=== PATIENT | female | born 1945 | race Caucasian/White ===

== ENCOUNTER 2016-12-08 11:56 | Emergency (ER) | payer MEDICARE, BC | END 2016-12-08 13:55 | disposition home or self-care (01) | LOC: D.ER 11:56 | DX: L50.9 Urticaria, unspecified (principal); J45.909 Unspecified asthma, uncomplicated; I10 Essential (primary) hypertension ==

== ENCOUNTER 2017-02-23 11:05 | Emergency (ER) | payer MEDICARE, BC ==
[2017-02-23 13:00] LABS: BASOPHILS 0.1 % (0.0-2.0); EOSINOPHILS 6.2 % (0-7); HEMATOCRIT 38.6 % (36.0-48.0); IMMATURE GRANULOCYTES 0.2 % (0-5); MCH 29.1 pg (26.0-34.0); MCHC 33.7 g/dL (31.0-37.0); MCV 86.4 fL (80.0-100.0); MEAN PLATELET VOLUME 10.2 fL (7.4-10.4); MONOCYTES 6.4 % (2-11); NEUTROPHILS 76.1 % (40-80); RBC 4.47 10x6/uL (4.00-5.40); RDW 13.3 % (11.5-14.5); WBC 12.2 10x3/uL (4.8-10.8)
[2017-02-23 13:03] LABS: PLATELET COUNT 277 10x3/uL (130-400)
== END 2017-02-23 13:45 | disposition home or self-care (01) ==
LOC: D.ER 11:05
PROVIDERS: Nurse Practitioner Acute Care
DX: J18.9 Pneumonia, unspecified organism (principal); I10 Essential (primary) hypertension; J45.909 Unspecified asthma, uncomplicated

== ENCOUNTER 2017-10-16 21:45 | Observation (INO) | payer MEDICARE, BC ==
[~2017-10-16] VITALS: Ht 160 cm; Wt 62.4 kg
[2017-10-16 23:29] LABS: BASOPHILS 0.2 % (0-2); HEMATOCRIT 40.5 % (36.0-48.0); HEMOGLOBIN 13.8 g/dL (12-16); IMMATURE GRANULOCYTES 0.2 % (0-5); LYMPHOCYTES 2.3 % (15-50); MCH 28.9 pg (26.0-34.0); MCHC 34.1 g/dL (31.0-37.0); MCV 84.7 fL (80.0-100.0); MEAN PLATELET VOLUME 10.5 fL (7.4-10.4); MONOCYTES 1.4 % (2-11); NEUTROPHILS 94.9 % (40-80); PLATELET COUNT 245 10x3/uL (130-400); RBC 4.78 10x6/uL (4.00-5.40); RDW 13.6 % (11.5-14.5); WBC 17.8 10x3/uL (4.8-10.8)
[2017-10-16 23:51] LABS: ALBUMIN 3.7 g/dL (3.4-5.0); ALKALINE PHOSPHATASE 76 U/L (46-116); ALT (SGPT) 16 U/L (10-68); BILIRUBIN - TOTAL 0.34 mg/dL (0.2-1.3); CALC OSMOLALITY 280 mosm/kg (275-300); CALCIUM 8.7 mg/dL (8.5-10.1); CARBON DIOXIDE 26.4 mmol/L (21.0-32.0); CHLORIDE - SERUM 101 mmol/L (98-107); CREATININE - SERUM 0.7 mg/dL (0.6-1.3); GLUCOSE 158 mg/dL (74-106); INR 0.95 (0.85-1.17); POTASSIUM - SERUM 3.7 mmol/L (3.5-5.1); PROTEIN - SERUM 7.4 g/dL (6.4-8.2); PROTIME 12.3 SECONDS (11.6-15.0); SODIUM 138 mmol/L (136-145); UREA NITROGEN 17 mg/dL (7-18); eGFR NON AFRICAN AMERICAN 87 mL/min (90-120)
[2017-10-17 00:08] LABS: CREATINE KINASE 138 UL (21-215); PRO BNP 151 pg/mL (0-125)
--- NOTE | 2017-10-17 01:44 | NUR ---
RECEIVED REPORT FROM LIZ LAZARO.
[2017-10-17] MEDS ORDERED: HYZAAR 50-12.51 TAB PO (02:33)
[2017-10-17] MEDS ORDERED: PEPCID40 MG PO (02:33)
[2017-10-17 02:56] VITALS: BP 123/79; Ht 160 cm; Wt 62.4 kg
[2017-10-17 04:00] VITALS: BP 123/79
--- NOTE | 2017-10-17 06:23 | NUR ---
NO CHANGES FROM PREVIOUS ASSESSMENT, NPO UNTIL SEEN BY CARDIOLOGY. CALL LIGHT IN REACH.
--- NOTE | 2017-10-17 07:15 | NUR ---
RESTING QUIETLY RESP UNLABORED NAD NOTED
--- NOTE | 2017-10-17 07:30 | NUR ---
ASSESSMENT COMPLETED. TELEMERTY SHOWS SR AT 98.O2 AT 2 L/M PER NC. LEFT FORE AMR IV WITH NS AT 100. RIGHT FOREARM WITH A SALINE LOCK. DENIES ANY NEEDS. ALERT AND ORIENTED.PT IS UP AB DORIS. CALL LIGHT IN REACH WITH SR UP. WILL MONITOR
[2017-10-17 08:00] VITALS: BP 114/61
--- NOTE | 2017-10-17 10:42 | NUR ---
PT DISCHARGED. IVS DCD WITH TIP INTACT. TO PRIVATE CAR PER WHEELCHAIR
--- NOTE | 2017-10-19 15:17 | DS ---
PATIENT:BRUCE BENITEZ :45 MEDICAL RECORD: [id number] DISCHARGE SUMMARY ADMISSION DATE: 10/17/17 DISCHARGE DATE: 10/17/17 DISCHARGE DIAGNOSES: 1. Non-ST elevation myocardial infarction. 2. Obstructive pulmonary disease. 3. Gastroesophageal reflux disease. 4. Hypertension. HOSPITAL COURSE: Admitted with COPD exacerbation, non-ST elevation myocardial infarction, possibly type 2 SD. The patient [place] of town, refused further workup, was offered angiography. Never had ischemia workup in the past. Risks and benefits were explained. She was discharged home. She is to followup with her regular doctor. 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
== END 2017-10-17 10:43 | disposition home or self-care (01) ==
LOC: D.ER 21:45 → OBSVTIME 10-17 01:07 → D.M2 10-17 01:07
PROVIDERS: Nurse Practitioner Family; ADMIT Internal Medicine Interventional Cardiology
DX: I21.4 Non-ST elevation (NSTEMI) myocardial infarction (principal); J44.1 Chronic obstructive pulmonary disease with (acute) exacerbation; K21.9 Gastro-esophageal reflux disease without esophagitis; I10 Essential (primary) hypertension